=== PATIENT | male | born 2000 | race African-American/Black ===

== ENCOUNTER 2020-11-27 09:20 | Emergency (ER) | payer OTHER, SELFPAY ==
--- NOTE | ~2020-11-27 | CT_ITS ---
EXAMINATION: CT HEAD WITHOUT CONTRAST CLINICAL INFORMATION: Syncopal episode COMPARISON: None TECHNIQUE: Contiguous axial imaging was performed from the skull base to vertex without intravenous administration of contrast. This CT examination was performed using dose optimization techniques as appropriate, variously including the following: *Automated exposure control *Adjustment of mA and/or kV according to patient size (this includes techniques or standardized protocols for targeted exams where dose is matched to indication/reason for exam; i.e. extremities or head) *Use of iterative reconstruction technique DLP: 680 mGy-cm FINDINGS: No evidence of acute intracranial hemorrhage or extra-axial fluid collection. No evidence of mass lesion, mass effect or midline shift. The ventricles are symmetric in configuration and normal in size. The basal cisterns are patent. The calvarium is intact. Limited views of the paranasal sinuses are unremarkable. Mastoid air cells are well aerated and middle ear cavities are clear. Limited views of the orbits are unremarkable. CT/CT head/brain wo con IMPRESSION: No acute intracranial pathology.
[2020-11-27 09:26] VITALS: BP 151/77; PULSE 50; RESP 18; TEMP 36.8; O2SAT 100; BMI 23.9
--- NOTE | 2020-11-27 10:29 | ED.NAVMDI ---
HPI - Nausea/Vomiting/Diarrhea General Chief complaint: Nausea/Vomiting/Diarrhea Stated complaint: DIARRHEA VOMITING LOW BP Time Seen by Provider: 11/27/20 10:06 Source: patient Mode of arrival: ambulatory Limitations: no limitations History of Present Illness HPI Narrative: Patient is a 20-year-old male with no significant past medical history who presents with nausea, vomiting, diarrhea and 2 episodes of syncope since recieving his 2nd covid vaccine. Patient states the following timeline; on November 05, he received his 2nd COVID vaccine, on November 08 he had an episode of syncope which was witnessed by his girlfriend. He did not hit his head but his girlfriend states he was out for approximately 3 minutes. He did not seek medical attention at that time. On November 14, he had a 2nd unwitnessed syncopal episode while urinating. He is not sure how many minutes he lost consciousness for but he states he did hit his head and had several episodes of vomiting after. He did not seek medical attention at that time either. Now he states for the past 12 days, he has had nausea vomiting and diarrhea daily and has had 10 lb of weight loss associated with it. He states he has vomited 3-4 times per day, usually after he eats, he denies any blood or coffee ground like vomitus. He states he has had 5 episodes of diarrhea per day but has not looked to see if there is blood or black in his diarrhea but states he thinks it is watery. He denies any fevers, he has had recent travel to [place] on November 07, he traveled with his girlfriend who does not have any symptoms like his. 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 Patient he states he has been drinking 1 gal of water per day Related Data Previous Rx's Medication Instructions Recorded ondansetron HCl [Zofran] 4 mg PO Q8H PRN #10 tab 11/27/20 Allergies Allergy/AdvReac Type Severity Reaction Status Date / Time No Known Allergies Allergy Verified 11/27/20 10:30 Review of Systems Review of Systems: Yes all other systems are reviewed and are negative [facility] Social History Social History Alcohol intake: current Alcohol intake frequency: a few times a week Patient Tobacco Use Status: Current someday Tobacco user Smoked in Last 30 Days: Yes Use of substances other than those prescribed or required for medical reasons: No Advance Directives: No Advance Directives Information Provided: No Physical Exam Vital Signs: Vital Signs: Last Vital Signs Temp 98.3 F 11/27/20 09:26 Pulse 50 11/27/20 09:26 Resp 18 11/27/20 09:26 BP 151/77 H 11/27/20 09:26 Pulse Ox 100 11/27/20 09:26 Body Mass Index 23.9 Const: General: cooperative, healthy appearing, comfortable, no acute distress and well developed Orientation/consciousness: patient oriented x3 Limitations: no limitations HENMT: Head: Yes normal to inspection Eyes: General: appearance normal, both eyes and all related structures Neck: Neck: Yes normal visual inspection and Yes full ROM Resp: Effort & Inspection: normal respiratory effort and able to speak in complete sentences Auscultation: clear to auscultation bilaterally Cardio: Rate: regular rate Rhythm: regular rhythm Heart sounds: normal S1 and S2 GI: Inspection: Yes normal to inspection Palpation (GI): Soft to palpation and nontender Auscultation: normal bowel sounds Skin: General skin exam: no rashes or lesions noted Neuro: General: patient oriented x3 Extrem: General: Yes normal to inspection Course Course Course Narrative: Patient is a 20-year-old male with no significant past medical history who presents with nausea, vomiting, diarrhea and 2 episodes of syncope since receiving his 2nd covid vaccine. VSS sans slightly elevated BP at 151/77. PE unremarkable. Will get labs, EKG, head CT, stool culture, c diff. Reevaluation(s) Reevaluation #1: labs all within normal limits, COVID negative, head CT negative, vital signs are stable. Pt is well appearing. Patient unable to provide stool sample, we will give supplies so he can bring it to the lab if his symptoms continue. Time: 12:34 MDM - Nausea/Vomiting/Diarrhea Lab Data Attestation: I reviewed the patient's lab results. Result diagrams: 11/27/20 10:44 11/27/20 10:44 Labs: Lab Results 11/27/20 11/27/20 11/27/20 Range/Units 10:43 10:44 10:44 WBC 3.8 L (4.8-10.8) X10*3/uL RBC 4.57 L (4.60-5.80) X10*6/uL Hgb 13.9 L (14.0-18.0) g/dl Hct 41.0 L (42-52) % MCV 89.7 (80-98) fL MCH 30.4 (27.0-33.0) pg MCHC 33.9 (31.0-36.0) g/dl RDW 12.5 (11.0-16.0) % Plt Count 246 (160-400) X10*3/uL MPV 10.1 (9.4-12.4) fL Immature Gran % (Auto) 0.0 (0.0-0.4) % Neut % (Auto) 36.0 L (45-73) % Lymph % (Auto) 48.6 H (20-40) % [place] % (Auto) 10.7 (2-11) % Eos % (Auto) 3.9 (0-4) % Baso % (Auto) 0.8 (0-2) % Lymph # (Auto) 1.9 (1.2-4.9) X10*3/uL [place] # (Auto) 0.4 (0.1-1.2) X10*3/uL Eos # (Auto) 0.2 (0.0-0.4) X10*3/uL Baso # (Auto) 0.0 (0.0-0.2) X10*3/uL Abs Immat Gran (auto) 0.00 (0.00-0.03) X10*3/uL Absolute Neuts (auto) 1.4 L (2.0-8.3) X10*3/uL Absolute Nucleated RBC 0.000 (0.0-0.012) X10*3/uL Nucleated RBC % (auto) 0.0 (0.0-0.2) /100WBC Sodium 139 (135-145) mmol/L Potassium 4.0 (3.3-5.1) mmol/L Chloride 103 (96-108) mmol/L Carbon Dioxide 27 (22-29) mmol/L Anion Gap 13 (12-20) BUN 8 L (9-16) mg/dL Creatinine 1.37 (0.5-1.4) mg/dL Estim Creat Clear Calc 88.0 Estimated GFR > 60 Random Glucose 82 (60-115) mg/dL Calcium 9.5 (8.4-10.2) mg/dL Total Bilirubin 1.4 H (0.0-1.0) mg/dL Direct Bilirubin 0.5 (0.0-0.5) mg/dL AST 28 (5-37) U/L ALT 24 (0-40) U/L Alkaline Phosphatase 69 (39-117) U/L Total Protein 7.8 (6.5-8.0) g/dL Albumin 4.9 (3.5-5.0) g/dL Lipase 25 (8-78) U/L Urine Color STRAW Urine Appearance CLEAR Urine pH 5.5 (5.0-8.0) Ur Specific [place] <= 1.005 (1.005-1.025) Urine Protein NEG (NEG-TRACE) MG/DL Urine Glucose (UA) NEG (NEG) MG/DL Urine Ketones NEG (NEG) MG/DL Urine Blood NEG (NEG) Urine Nitrite NEG (NEG) Ur Leukocyte Esterase NEG (NEG) COVID-19 (CHRISTEN) (Negative) COVID-19 Clin Com 11/27/20 Range/Units 11:55 WBC (4.8-10.8) X10*3/uL RBC (4.60-5.80) X10*6/uL Hgb (14.0-18.0) g/dl Hct (42-52) % MCV (80-98) fL MCH (27.0-33.0) pg MCHC (31.0-36.0) g/dl RDW (11.0-16.0) % Plt Count (160-400) X10*3/uL MPV (9.4-12.4) fL Immature Gran % (Auto) (0.0-0.4) % Neut % (Auto) (45-73) % Lymph % (Auto) (20-40) % [place] % (Auto) (2-11) % Eos % (Auto) (0-4) % Baso % (Auto) (0-2) % Lymph # (Auto) (1.2-4.9) X10*3/uL [place] # (Auto) (0.1-1.2) X10*3/uL Eos # (Auto) (0.0-0.4) X10*3/uL Baso # (Auto) (0.0-0.2) X10*3/uL Abs Immat Gran (auto) (0.00-0.03) X10*3/uL Absolute Neuts (auto) (2.0-8.3) X10*3/uL Absolute Nucleated RBC (0.0-0.012) X10*3/uL Nucleated RBC % (auto) (0.0-0.2) /100WBC Sodium (135-145) mmol/L Potassium (3.3-5.1) mmol/L Chloride (96-108) mmol/L Carbon Dioxide (22-29) mmol/L Anion Gap (12-20) BUN (9-16) mg/dL Creatinine (0.5-1.4) mg/dL Estim Creat Clear Calc Estimated GFR Random Glucose (60-115) mg/dL Calcium (8.4-10.2) mg/dL Total Bilirubin (0.0-1.0) mg/dL Direct Bilirubin (0.0-0.5) mg/dL AST (5-37) U/L ALT (0-40) U/L Alkaline Phosphatase (39-117) U/L Total Protein (6.5-8.0) g/dL Albumin (3.5-5.0) g/dL Lipase (8-78) U/L Urine Color Urine Appearance Urine pH (5.0-8.0) Ur Specific [place] (1.005-1.025) Urine Protein (NEG-TRACE) MG/DL Urine Glucose (UA) (NEG) MG/DL Urine Ketones (NEG) MG/DL Urine Blood (NEG) Urine Nitrite (NEG) Ur Leukocyte Esterase (NEG) COVID-19 (CHRISTEN) Negative (Negative) COVID-19 Clin Com See Note Imaging Data CT scan - head: Attestation: I personally reviewed and interpreted this imaging study as follows: Radiologist's impression: [address] [id number] Scan ReportSigned Patient: JOSE LUIS MACHADO#: [id number]: 2000Acct:[id number]/Sex: 20 MADM Date: 11/27/20Loc: [address]: Ordering Physician: Georgia Humphries PA-C Date of Service: 11/27/20 Procedure(s): CT head/brain wo con Accession Number(s): [id number] cc: Georgia Humphries PA-C~ EXAMINATION: CT HEAD WITHOUT CONTRAST CLINICAL INFORMATION: Syncopal episode COMPARISON: None TECHNIQUE: Contiguous axial imaging was performed from the skull base to vertex without intravenous administration of contrast. This CT examination was performed using dose optimization techniques as appropriate, variously including the following: *Automated exposure control *Adjustment of mA and/or kV according to patient size (this includes techniques or standardized protocols for targeted exams where dose is matched to indication/reason for exam; i.e. extremities or head) *Use of iterative reconstruction technique DLP: 680 mGy-cm FINDINGS: No evidence of acute intracranial hemorrhage or extra-axial fluid collection. No evidence of mass lesion, mass effect or midline shift. The ventricles are symmetric in configuration and normal in size. The basal cisterns are patent. The calvarium is intact. Limited views of the paranasal sinuses are unremarkable. Mastoid air cells are well aerated and middle ear cavities are clear. Limited views of the orbits are unremarkable. CT/CT head/brain wo con IMPRESSION: No acute intracranial pathology. Dictated By:CHASIDY [place] MDSigned By:<Electronically signed by CHASIDY [place] MD in OV>11/27/20 1132 DD/ 1034TD/TT: Order Clerk: KAYLA ECG Data Attestation: I personally reviewed and interpreted this ECG as follows: ECG interpretation date: 11/27/20 ECG interpretation time: 12:30 Interpretation: [address] [id number] ReportDraft Patient: JOSE LUIS MACHADO#: [id number]: 2000Acct:[id number]/Sex: MAD Date: 11/27/20Loc: [address]: Ordering Physician: Georgia Humphries PA-C Date of Service: 11/27/20 Procedure(s): ECG 12 lead EKG Accession Number(s): [id number] cc: ~ Test Reason : GENERAL MEDICINE Blood Pressure : / mmHG Vent. Rate : 058 BPM Atrial Rate : 058 BPM P-R Int : 182 ms QRS Dur : 084 ms QT Int : 418 ms P-R-T Axes : 035 076 055 degrees QTc Int : 410 ms Sinus bradycardia with sinus arrhythmia Moderate voltage criteria for LVH, may be normal variant Early repolarization Borderline ECG No previous ECGs available Referred By: Georgia Humphries Electronically Signed By: Dictated By:Signed By: DD/ 1150TD/TT: 11/27/201149Transcriptionist: Discharge Plan Discharge Clinical Impression: Gastroenteritis Patient Disposition: Home, Self-Care Instructions: Gastroenteritis (ED) Additional Instructions: Your white blood cell count was a little bit low today at 3.8. This could be because of a viral infection, once you are feeling better, please follow-up with your primary care doctor to ensure this goes to an amount within normal limits. Your other labs were within normal limits, your head CT was negative for acute intracranial pathology. Your vital signs were also stable during your visit to the ED today. If your symptoms continue, please follow-up with your primary care doctor. Since you were unable to provide a stool sample today, we are giving his flies to provide us with 1. Once you have it collected, please bring it to the lab at the hospital which is rate inside the main entrance of the hospital. Prescriptions: New ondansetron HCl [Zofran] 4 mg tablet 4 mg PO Q8H PRN (Reason: nausea and vomiting) Qty: 10 RF: 0 Stand Alone Forms: Work/School Release Interventions: ED Discharge Assessment Last Done: 11/27/20 13:09 Discharge Date/Time: 11/27/20 13:13
--- NOTE | 2020-11-27 10:34 | ECG_ITS ---
Test Reason : GENERAL MEDICINE Blood Pressure : / mmHG Vent. Rate : 058 BPM Atrial Rate : 058 BPM P-R Int : 182 ms QRS Dur : 084 ms QT Int : 418 ms P-R-T Axes : 035 076 055 degrees QTc Int : 410 ms Sinus bradycardia with sinus arrhythmia Moderate voltage criteria for LVH, may be normal variant Early repolarization Borderline ECG No previous ECGs available Referred By: Georgia Humphries Electronically Signed By:ANDREW LAMA MD
[2020-11-27 10:50] LABS: MANUAL DIFF FLAG NO
--- NOTE | 2020-11-27 10:51 | PC.NURSE ---
Patient reports to the ED complaining of nausea/vomiting/diarrhea/syncope since receiving COVID vaccine 1 week ago. Patient is alert and oriented. Well appearing, ambulates with balanced and steady gait into ER, using cell phone. Patient vitals WNL. Respirations regular and even. Skin PWD. Urine sample provided by patient with clear urine. Patient drinking out of gallon water bottle and no vomiting while in the ED at this time. Provider to bedside to evaluate. IV established and labs drawn. Patient tolerated well. Cup at bedside and patient educated on need for stool specimen. Awaiting results at this time.
[2020-11-27 10:52] LABS: Basophils Percent Auto 0.8 % (0-2); Eosinophils Absolute Auto 0.2 X10*3/uL (0.0-0.4); Eosinophils Percent Auto 3.9 % (0-4); Hemoglobin 13.9 g/dl (14.0-18.0); Lymphocytes Absolute Auto 1.9 X10*3/uL (1.2-4.9); Lymphocytes Percent Auto 48.6 % (20-40); Mean Corpuscular HGB Conc 33.9 g/dl (31.0-36.0); Mean Corpuscular Hemoglobin 30.4 pg (27.0-33.0); Mean Corpuscular Volume 89.7 fL (80-98); Mean Platelet Volume 10.1 fL (9.4-12.4); Monocytes Absolute Auto 0.4 X10*3/uL (0.1-1.2); Monocytes Percent Auto 10.7 % (2-11); Neutrophils Absolute Auto 1.4 X10*3/uL (2.0-8.3); Platelet Count 246 X10*3/uL (160-400); Red Blood Count 4.57 X10*6/uL (4.60-5.80); Red Cell Distribution Width 12.5 % (11.0-16.0); White Blood Count 3.8 X10*3/uL (4.8-10.8)
[2020-11-27 10:54] LABS: Glucose Urine UA NEG (NEG); Leukocyte Esterase Urine NEG (NEG); Nitrite Urine NEG (NEG); PH 5.5 (5.0-8.0); Specific Gravity - Urine <= 1.005 (1.005-1.025); Urine Blood NEG (NEG); Urine Ketones NEG (NEG); Urine Protein NEG (NEG-TRACE)
[2020-11-27 10:55] LABS: Appearance Urine CLEAR; Color Urine STRAW
[2020-11-27 11:20] LABS: Alanine Aminotransferase 24 U/L (0-40); Albumin Level 4.9 g/dL (3.5-5.0); Alkaline Phosphatase 69 U/L (39-117); Anion Gap 13 (12-20); Aspartate Amino Transferase 28 U/L (5-37); Bilirubin Direct 0.5 mg/dL (0.0-0.5); Bilirubin Total 1.4 mg/dL (0.0-1.0); Blood Urea Nitrogen 8 mg/dL (9-16); Calcium 9.5 mg/dL (8.4-10.2); Carbon Dioxide 27 mmol/L (22-29); Chloride 103 mmol/L (96-108); Estimated Glomerular Filt Rate > 60; Glucose Random 82 mg/dL (60-115); Lipase 25 U/L (8-78); Sodium 139 mmol/L (135-145); Total Protein 7.8 g/dL (6.5-8.0)
[2020-11-27 12:23] LABS: COVID-19 Test Negative (Negative)
== END 2020-11-27 13:13 | disposition home or self-care (01) ==
PROVIDERS: Physician Assistant; Emergency Provider Emergency Medicine Emergency Medical Services
DX: K52.9 Noninfective gastroenteritis and colitis, unspecified (principal); R11.2 Nausea with vomiting, unspecified; Z20.822 Contact with and (suspected) exposure to COVID-19
CPT/HCPCS: 36415; 70450; 80048; 80076; 81003; 83690; 85025; 87635; 93005; 99284; 99285